=== PATIENT | female | born 1955 | race Caucasian/White ===

== ENCOUNTER 2022-04-03 11:14 | Emergency (ER) | payer MEDICAID ==
[~2022-04-03] VITALS: Ht 165.1 cm; Wt 68.0 kg
[2022-04-03 12:20] LABS: BASOPHILS % 2.2 % (0.0-2.0); EOSINOPHILS % 4.5 % (0.0-5.0); HEMATOCRIT. 26.3 % (36.0-48.0); LYMPHOCYTES % 12.8 % (20.0-50.0); MEAN CORPUSCULAR HEMOGLOBIN 32.2 pg (28.0-32.0); MEAN CORPUSCULAR VOLUME 93.4 fL (81.0-99.0); MEAN PLATELET VOLUME 6.8 fl (7.4-10.4); MONOCYTES % 11.9 % (2.0-8.0); NEUTROPHILS % 68.6 % (40.0-76.0); PLATELET 232 x1000/uL (130-400); RED BLOOD CELL COUNT 2.81 mill/uL (4.2-5.4); RED CELL DISTRIBUTION WIDTH 16.3 % (11.6-14.6)
[2022-04-03 12:30] LABS: CHLORIDE 95 mEq/L (98-107)
[2022-04-03 13:22] VITALS: BP 166/62
== END 2022-04-03 14:22 | disposition home or self-care (01) ==
LOC: ER 11:14
DX: T82.838A Hemorrhage due to vascular prosthetic devices, implants and grafts, initial encounter (principal); I12.9 Hypertensive chronic kidney disease with stage 1 through stage 4 chronic kidney disease, or unspecified chronic kidney disease; E11.22 Type 2 diabetes mellitus with diabetic chronic kidney disease; N18.9 Chronic kidney disease, unspecified
CPT/HCPCS: 36415; 80053; 85025; 99283